=== PATIENT | male | born 1955 | race Native Hawaiian/Other Pacific Islander ===

== ENCOUNTER 2020-09-23 12:15 | Outpatient (CLI) | payer OTHER | END 2020-09-23 23:03 | disposition home or self-care (01) | LOC: RAD 12:15 | PROVIDERS: ATTEND Internal Medicine | DX: Z01.818 Encounter for other preprocedural examination (principal) ==

== ENCOUNTER 2023-01-20 08:59 | Outpatient (CLI) | payer OTHER | END 2023-01-20 18:58 | disposition home or self-care (01) | LOC: RESP 08:59 | PROVIDERS: ATTEND Internal Medicine | DX: R42 Dizziness and giddiness (principal); R07.89 Other chest pain; E78.49 Other hyperlipidemia; R55 Syncope and collapse; R06.09 Other forms of dyspnea; E11.9 Type 2 diabetes mellitus without complications ==

== ENCOUNTER 2023-01-30 08:11 | Outpatient (CLI) | payer OTHER ==
[~2023-01-30] VITALS: Ht 182.9 cm; Wt 134.3 kg
== END 2023-01-30 19:13 | disposition home or self-care (01) ==
LOC: NM 08:11
PROVIDERS: ATTEND Internal Medicine
DX: R06.09 Other forms of dyspnea (principal); R07.89 Other chest pain; E11.9 Type 2 diabetes mellitus without complications
CPT/HCPCS: A9500; J2785